=== PATIENT | female | born 2000 | race American Indian/Alaskan Native ===

== ENCOUNTER 2021-06-09 19:20 | Outpatient (CLI) | payer MEDICAID ==
[2021-06-09] MEDS ORDERED: LACTATED RINGERS 1,000 ML IV ONE (19:45)
[2021-06-09] MEDS ORDERED: TERBUTALINE 1 MG/1 ML INJ SUB-Q SCH (20:00)
[2021-06-09 20:08] VITALS: BP 119/74
[2021-06-09 21:02] LABS: Bacteria,Urine 2+ /HPF (Negative); Bilirubin,Urine NEG (Negative); Blood,Urine SM (Negative); Color,Urine Yellow (Yellow); Mucus,Urine FEW /HPF; Urobilinogen,Urine < 2.0 mg/dL (<2.0)
== END 2021-06-09 21:38 | disposition home or self-care (01) ==
LOC: TRG 19:20 → APU 19:32 → TRG 21:38
PROVIDERS: ATTEND Obstetrics & Gynecology
DX: Z34.92 Encounter for supervision of normal pregnancy, unspecified, second trimester (principal); Z3A.27 27 weeks gestation of pregnancy
CPT/HCPCS: 59025; 81001; 87076; 87086; 87186